=== PATIENT | male | born 1940 | race Caucasian/White ===

== ENCOUNTER → 2021-05-24 | Outpatient (CLI) | payer MEDICARE ==
--- NOTE | 2021-05-24 16:46 | CARD ---
MR#: [id number] Date of Study: 05/24/2021 Ordering Physician: JANAE BOSS, Referring Physician: JANAE BOSS, Tech: Latoya Horton, [facility] APPROVED REPORT EXAM: Two-dimensional and M-mode echocardiogram with Doppler and color Doppler. Other Information Quality : AverageHR: 66bpm INDICATION Dizziness and Vertigo RISK FACTORS Hypertension Hyperlipidemia Diabetes 2D DIMENSIONS RVDd3.7 (2.9-3.5cm)Left Atrium(2D)3.4 (1.6-4.0cm) IVSd1.3 (0.7-1.1cm)Aortic Root(2D)3.1 (2.0-3.7cm) LVDd4.3 (3.9-5.9cm)LVOT Diameter2.1 (1.8-2.4cm) PWd1.0 (0.7-1.1cm)LVDs3.0 (2.5-4.0cm) FS (%) 29.7 %SV47.7 ml LVEF(%)57.1 (>50%) Aortic Valve AoV Peak Sterling.114.0cm/sAoV VTI27.7cm AO Peak GR.5.2mmHgLVOT Peak Sterling.88.7cm/s LVOT VTI 21.36cmAO Mean GR.3mmHg HITESH (VMAX)2.80fh3MYG (VTI)2.63cm2 Mitral Valve MV E Tartdqqz03.1cm/sMV E Peak Gr.4mmHg MV DECEL [id number] A Leyjibft025.6cm/s MV E Mean Gr.1mmHgE/A Ratio0.6 Pulmonary Valve PV Peak Tjaafbtf24.7cm/sPV Peak Grad.3mmHg Pulmonary Vein S1 Azkekihe69.4cm/sD2 Wmxrnwii17.8cm/s LEFT VENTRICLE The left ventricle is normal size. There is mild concentric left ventricular hypertrophy. The left ve ntricular systolic function is normal and the ejection fraction is within normal range. The Ejection Fraction is 50-55%. There is normal LV segmental wall motion. Transmitral Doppler flow pattern is Gra de I-abnormal relaxation pattern. RIGHT VENTRICLE The right ventricle is normal size. There is normal right ventricular wall thickness. The right ventr icular systolic function is normal. ATRIA The left atrium size is normal. The right atrium size is normal. The interatrial septum is intact wit h no evidence for an atrial septal defect or patent foramen ovale as noted on 2-D or Doppler imaging. AORTIC VALVE The aortic valve is normal in structure and function. Doppler and Color Flow revealed trace aortic re gurgitation. Calculated aortic valve area is 2.6 cm2 with maximum pressure gradient of 6 mmHg and diane n pressure gradient of 3 mmHg. There is no significant aortic valvular stenosis. MITRAL VALVE The mitral valve is normal in structure and function. There is no evidence of mitral valve prolapse. There is no mitral valve stenosis. Doppler and Color-flow revealed trace mitral regurgitation. TRICUSPID VALVE The tricuspid valve is normal in structure and function. Doppler and Color Flow revealed no tricuspid valve regurgitation noted. There is no tricuspid valve stenosis. PULMONIC VALVE The pulmonary valve is normal in structure and function. Doppler and Color Flow revealed trace pulmon ic valvular regurgitation. GREAT VESSELS The aortic root is normal in size. The IVC was not well visualized. PERICARDIAL EFFUSION There is no evidence of significant pericardial effusion. Critical Notification Critical Value: No <Conclusion> The left ventricle is normal size. The left ventricular systolic function is normal and the ejection fraction is within normal range. The Ejection Fraction is 50-55%. There is normal LV segmental wall motion. There is mild concentric left ventricular hypertrophy. Doppler and Color Flow revealed trace aortic regurgitation. There is no significant aortic valvular stenosis. Doppler and Color-flow revealed trace mitral regurgitation. Doppler and Color Flow revealed no tricuspid valve regurgitation noted. Signed by : Chaparro Morrissey MD Electronically Approved : 05/24/2021 16:45:24
== END ==
LOC: ECHO 11:03
PROVIDERS: ATTEND Family Medicine
DX: I51.7 Cardiomegaly (principal); R42 Dizziness and giddiness
CPT/HCPCS: 93306